=== PATIENT | female | born 1930 | race Two or more races ===

== ENCOUNTER 2016-09-23 03:09 | Observation (INO) | payer MEDICARE, OTHER ==
[~2016-09-23] VITALS: Ht 152.4 cm; Wt 99.1 kg
[2016-09-23] MEDS ORDERED: ONDANSETRON 4 MG INJ IV STA (03:27)
[2016-09-23] MEDS ORDERED: morphine 4 MG/ML VIAL IV STA (03:27)
--- NOTE | 2016-09-23 04:26 | RADRPT ---
PROCEDURE: XR Chest. CLINICAL INDICATION: Chest Pain. TECHNIQUE: Single frontal chest x-ray. COMPARISON: None. FINDINGS: Portable AP technique accentuates the size of the cardiomediastinal silhouette. There is the appeara nce of minimal enlargement of the cardiac silhouette. There is minimal prominence of the lung inters titium likely minimal chronic changes. There is mild patchy increased density in the left lower lung which could be secondary to atelectasis or infiltrate. Calcification in the aortic arch. Degenera tive changes in thoracic spine. ECG leads are projected over the chest. IMPRESSION: Patchy increased density in left lower lung could represent atelectasis or infiltrate. Minimal enla rgement of cardiac silhouette apparent. Please see above. RPTAT: HJES .David Carranza MD, Date Time Electronically viewed and signed by .David Carranza MD, on 09/23/2016 04:26 .S/
[2016-09-23 04:40] LABS: ADD SCAN DIFF NO
[2016-09-23 04:44] LABS: BASOPHIL # 0.1 10^3/ul (0.0-0.1); BASOPHILS % 0.6 % (0.0-2.0); EOSINOPHILS # 0.2 10^3/ul (0.0-0.5); EOSINOPHILS % 1.7 % (0.0-7.0); HEMATOCRIT 34.3 % (37.0-47.0); HEMOGLOBIN 11.5 g/dl (12.0-16.0); LYMPHOCYTES # 2.1 10^3/ul (0.8-2.9); MEAN CORPUSCULAR HEMOGLOBIN 29.7 pg (29.0-33.0); MEAN CORPUSCULAR HGB CONC 33.5 g/dl (32.0-37.0); MEAN CORPUSCULAR VOLUME 88.6 fl (82.0-101.0); MEAN PLATELET VOLUME 9.3 fl (7.4-10.4); MONOCYTE # 0.6 10^3/ul (0.3-0.9); MONOCYTES % 6.6 % (0.0-11.0); NEUTROPHIL # 6.3 10^3/ul (1.6-7.5); NEUTROPHILS % 67.7 % (39.0-77.0); PLATELET COUNT 273 10^3/UL (140-415); RED BLOOD COUNT 3.87 10^6/ul (4.20-5.40); RED CELL DISTRIBUTION WIDTH 13.4 % (11.5-14.5); WHITE BLOOD COUNT 9.3 10^3/ul (4.8-10.8)
[2016-09-23 04:57] LABS: CHLORIDE 98 mmol/L (97-110); POTASSIUM 4.3 mmol/L (3.5-5.1); SODIUM 132 mmol/L (135-144)
[2016-09-23 05:00] LABS: ANION GAP 15 (8-16); BLOOD UREA NITROGEN 21 mg/dl (7-20); CARBON DIOXIDE 23 mmol/L (21-31); CREATININE 1.06 mg/dl (0.44-1.00); GLUCOSE 107 mg/dl (70-220)
[2016-09-23 05:01] LABS: CALCIUM 8.9 mg/dl (8.4-10.2)
[2016-09-23 05:07] LABS: INR 0.88; PROTIME 11.9 Sec (12.2-14.2); PT RATIO 0.9
[2016-09-23 05:08] LABS: PARTIAL THROMBOPLASTIN TIME 25.8 Sec (25.0-35.0)
--- NOTE | 2016-09-23 05:12 | ERA ---
ER Documentation Chief Complaint Date/Time DATE: 09/23/16 TIME: 05:11 Chief Complaint left chest burning pain radiating to left shoulder,dizziness,SOB HPI This is a very pleasant 85-year-old gentleman complains of left-sided chest pain is radiating to his left shoulder with mild associated dizziness shortness breath. Symptomology is been going on for 1 hour. Pain is mild to moderate in intensity. Patient is a history of previous cardiac issues. No other current complaints. ROS All systems reviewed and are negative except as per history of present illness. Allergies Allergies: Coded Allergies: No Known Allergy (Unverified , 09/23/16) PMhx/Soc History of Surgery: Yes (knee replacement) Hx Neurological Disorder: No Hx Respiratory Disorders: No Hx Psychiatric Problems: No Hx Miscellaneous Medical Probl: Yes (hypertension, arthritis) Hx Alcohol Use: No Hx Substance Use: No Hx Tobacco Use: No Smoking Status: Never smoker Physical Exam Vitals Vital Signs Date Time Temp Pulse Resp B/P Pulse Ox O2 Delivery O2 Flow Rate FiO2 09/23/16 04:25 64 17 152/86 98 09/23/16 03:21 98.3 69 18 163/84 98 Physical Exam Const: [] Head: Atraumatic Eyes: Normal Conjunctiva ENT: Normal External Ears, Nose and Mouth. Neck: Full range of motion..~ No meningismus. Resp: Clear to auscultation bilaterally Cardio: Regular rate and rhythm, no murmurs Abd: Soft, non tender, non distended. Normal bowel sounds Skin: No petechiae or rashes Back: No midline or flank tenderness Ext: No cyanosis, or edema Neur: Awake and alert Psych: Normal Mood and Affect Result Diagram: 09/23/16 0415 09/23/16 0415 Results 24 hrs Laboratory Tests Test 09/23/16 04:15 Activated Partial Thromboplast Time 25.8Sec Anion Gap 15 Basophils # 0.110^3/ul Basophils % 0.6% Blood Urea Nitrogen 21mg/dl Calcium Level 8.9mg/dl Carbon Dioxide Level 23mmol/L Chloride Level 98mmol/L Creatinine 1.06mg/dl Eosinophils # 0.210^3/ul Eosinophils % 1.7% Glucose Level 107mg/dl Hematocrit 34.3% Hemoglobin 11.5g/dl INR International Normalized Ratio 0.88 Lymphocytes # 2.110^3/ul Lymphocytes % 23.0% Mean Corpuscular Hemoglobin 29.7pg Mean Corpuscular Hemoglobin Concent 33.5g/dl Mean Corpuscular Volume 88.6fl Mean Platelet Volume 9.3fl Monocytes # 0.610^3/ul Monocytes % 6.6% Neutrophils # 6.310^3/ul Neutrophils % 67.7% Nucleated Red Blood Cells # 0.010^3/ul Nucleated Red Blood Cells % 0.0/100WBC Platelet Count 34132^3/UL Potassium Level 4.3mmol/L Prothrombin Time 11.9Sec Prothrombin Time Ratio 0.9 Red Blood Count 3.8710^6/ul Red Cell Distribution Width 13.4% Sodium Level 132mmol/L Troponin I Pending White Blood Count 9.310^3/ul Current Medications Medications (Trade) Dose Ordered Sig/Rylee Route PRN Reason Start Time Stop Time Status Last Admin Dose Admin Morphine Sulfate (morphine) 4 mg ONCE STAT IV 09/23/16 03:27 09/23/16 03:30 DC 09/23/16 04:22 Ondansetron HCl (Zofran Inj) 4 mg ONCE STAT IV 09/23/16 03:27 09/23/16 03:30 DC 09/23/16 04:19 Procedures/MDM Chest X-ray 1V Interpreted by me: Soft Tissue: No acute abnormalities Bones: No acute abnormalities Mediastinum/Cardiac Silhouette/Lungs: No acute abnormalities EKG: Rate/Rhythm: Normal Sinus Rhythm QRS, ST, T-waves: No changes consistent w/ acute ischemia Impression: No evidence of ischemia or arrhythmia Patient's symptoms are concerning for cardiac cause will require inpatient workup and continuous monitoring. Further w/u for ischemia, arrhythmia, PE or dissection will be deferred to the inpatient team. Accepting Care Team: Current data and ongoing care discussed. Time: 5:15 AM Primary Provider: Hospitalist Consulting: [XOXOXO] Outstanding Data: none Departure Diagnosis: Primary Impression: Chest pain Qualified Code: I20.9 - Ischemic chest pain Condition: Serious VERONIKA PASCUALAlyssa Sep 23, 2016 05:12
[2016-09-23 05:24] LABS: TROPONIN-I < 0.012 ng/ml (0.00-0.12)
[2016-09-23] MEDS ORDERED: LIDOCAINE/MYLANTA 40 ML BTL PO ONE (06:00)
[2016-09-23] MEDS ORDERED: QUET50TA4 PO (07:28)
[2016-09-23] MEDS ORDERED: MEMA28CA PO (07:28)
[2016-09-23] MEDS ORDERED: ICOS1CAP PO (07:28)
[2016-09-23] MEDS ORDERED: ATOR20TA38 PO (07:29)
[2016-09-23] MEDS ORDERED: GABA300C16 PO (07:29)
[2016-09-23] MEDS ORDERED: NEBI5TAB9 PO (07:29)
[2016-09-23] MEDS ORDERED: ALLO100T PO (07:29)
--- NOTE | 2016-09-23 10:09 | QN ---
Documentation Comment Observation Note: Time: 4 hours Family Hx: Negative for diabetes Evaluation: Multiple exams showed improving symptoms and no evidence of clinical decompensation. APOLONIA BATES MD Sep 23, 2016 10:08
[2016-09-23] MEDS ORDERED: NACL 0.9% 3 ML SYG IV SCH (12:00)
[2016-09-23] MEDS ORDERED: morphine 2 MG INJ IV PRN (12:00)
[2016-09-23] MEDS ORDERED: ONDANSETRON 4 MG INJ IV PRN (12:00)
[2016-09-23] MEDS ORDERED: BISACODYL (EC) 5 MG TAB PO PRN (12:00)
[2016-09-23] MEDS ORDERED: ALBUTEROL/IPRATROPIUM (NEB) 3 ML AMP HHN PRN (12:00)
[2016-09-23] MEDS ORDERED: MAGNESIUM HYDROXIDE 30ML CUP PO PRN (12:00)
[2016-09-23] MEDS ORDERED: ZOLPIDEM 5 MG TAB PO PRN (12:00)
[2016-09-23] MEDS ORDERED: DOCUSATE SODIUM 100 MG CAP PO PRN (12:00)
[2016-09-23] MEDS ORDERED: BISACODYL 10 MG SUPP PR PRN (12:00)
[2016-09-23] MEDS ORDERED: HYDROCODONE/APAP (5/325) TAB PO PRN (12:00)
[2016-09-23] MEDS ORDERED: ACETAMINOPHEN 325 MG TAB PO PRN (12:00)
[2016-09-23] MEDS ORDERED: AMLODIPINE 5 MG TAB PO ONE (12:30)
--- NOTE | 2016-09-23 12:37 | HP ---
DATE OF ADMISSION: 09/23/2016 CHIEF COMPLAINT: Chest pain. REASON FOR ADMISSION: Atypical chest pain, acute coronary syndrome. HISTORY OF PRESENT ILLNESS: This is an 85-year-old female with a past medical history of hypertension, hyperlipidemia, history of arthritis status post knee replacement who presented with a complaint of chest pain. The patient initially had a workup done in the emergency room including left-sided chest pain which is radiating to her left shoulder, associated with some dizziness and shortness of breath. The patient started to have this chest pain approximately 1 hour prior to the presentation. It was mild to moderate in intensity. The patient is admitted for acute coronary syndrome and atypical chest pain. So far the full set of the troponins and EKG have been negative. EKG shows a normal sinus rhythm, no ST-T wave changes. The patient, at the time of my evaluation, denies any chest pain, palpitation, headache, dizziness, blurry vision, constipation, diarrhea, dysuria, increased urinary frequency. REVIEW OF SYSTEMS: Positive for chest pain. Other 12 point review of systems has been obtained and is negative except what is mentioned in the history of present illness. PAST MEDICAL HISTORY: Hypertension, hyperlipidemia, arthritis. PAST SURGICAL HISTORY: History of knee replacement. SOCIAL HISTORY: No smoking, alcohol or recreational drug use. FAMILY HISTORY: As per the patient, no family history of coronary artery disease or stroke in the family. PHYSICAL EXAMINATION: VITAL SIGNS: Temperature 98.3, heart rate 75, respiration 19, blood pressure 143/86, saturation 99 to 100% on 2 liters nasal cannula. GENERAL: Awake, alert, in no distress. HEENT: Normal. Oropharynx clear. NECK: Supple, no JVD, no lymphadenopathy. LUNGS: Clear to auscultation. No crackles, no wheezes. HEART: S1, S2, with regular rhythm, no murmur. ABDOMEN: Soft, nontender, nondistended. Bowel sounds are present. EXTREMITIES: No clubbing, cyanosis, or edema. NEUROLOGICAL: Nonfocal, intact. PSYCHIATRIC: Appropriate affect and mood. LABORATORY DATA/DIAGNOSTIC IMAGIN. WBC 9.3, hemoglobin 11.5, platelet count 273, Sodium 132, potassium 4.3, chloride 98, bicarbonate 23, BUN 21, creatinine .06, glucose 107, calcium 8.9. Troponin x1 negative. PT 11.9, PTT 25.8, INR 0.88. 2. A 12-lead EKG a normal sinus rhythm, 73, no ST-T wave changes. 3. Chest x-ray 1 view portable, done in the emergency room, no acute findings. IMPRESSION: This is an 85-year-old female with: 1. Acute coronary syndrome, atypical chest pain. 2. Accelerated hypertension. 3. History of hypertension. 4. History of hyperlipidemia. 5. History of arthritis, status post knee replacement. PLAN: 1. Patient is currently seen in the emergency room and she will be admitted to the telemetry floor for serial troponins and EKG to rule out acute coronary syndrome. 2. Cardiology consult, Dr. Abarca, to see patient. 3. Echocardiogram has been ordered for workup of chest pain. We will continue her home medications. I will add amlodipine for better blood pressure control. The patient will be followed up along with her course in the hospital. 4. Pepcid for GI prophylaxis and SCDs for DVT prophylaxis. Patient is currently seen in the emergency room and she will be admitted to the telemetry floor. She is still waiting for a bed in the emergency room. Total time spent this patient evaluation, H &P,making assessment and plan, updating patient/Family at bedside, and communicating with Nursing staff took more than 90 minutes Dictated By: ELMO LOPEZ MD, KP/NINI Conf#: [id number] DID#: [id number] MTDD
[2016-09-23 13:52] LABS: CREATINE KINASE 131 IU/L (23-200)
[2016-09-23 14:02] LABS: CK-MB 2.42 ng/ml (0.0-2.4)
[2016-09-23 14:05] LABS: TROPONIN-I < 0.012 ng/ml (0.00-0.12)
[2016-09-23 14:26] VITALS: BP 157/79
[2016-09-23 14:36] VITALS: PULSE 62
[2016-09-23] MEDS: DEXTROSE 5%-0.45% NACL 1,000 ML IV SCH (14:49)
[2016-09-23 14:58] VITALS: Ht 152.4 cm; Wt 99.1 kg
[2016-09-23 15:30] VITALS: BP 147/68; RESP 16
[2016-09-23 16:18] VITALS: PULSE 68
--- NOTE | 2016-09-23 17:11 | RADRPT ---
Echocardiogram Report Patient Name: MARYSOL MCCOLLUM Gender: Female Date: 1930 Study Date: 23-Sep-2016 [employer] Operator: [facility] Location: [facility] Ref. Physician: ELMO LOPEZ Quality: Technically Difficult Study Procedures: Transthoracic echocardiogram with complete 2D, M-Mode, and doppler examination. Indications: Chest Pain. 2D/M Mode Doppler Measurement Value Normal Ranges Measurement Value Normal Ranges LVIDd 2D 4.9 3.5 - 5.6 cm AV Peak Best 1.2 m/sec LVIDs 2D 3.1 2.1 - 4.1 cm AV Peak PG 6.0 mmHg FS 2D 36.7 % LVOT Peak Best 1.0 m/sec LVPWd 2D 1.1 0.6 - 1.1 cm LVOT Peak PG 4.0 mmHg IVSd 2D 1.1 0.6 - 1.1 cm MV E Peak Best 0.8 m/sec IVS/LVPW 2D 1.0 MV A Peak Best 1.1 m/sec AoR Diam 2D 2.8 2.0 - 3.7 cm MV E/A 0.7 LA/Ao 2D 2 0 - 1 MV Decel Time 246 msec EDV 2D 120.0 cm3 MV E/A 0.7 ESV 2D 30.4 cm3 LA Dimen 2D 5.1 2.3 - 4.0 cm Findings Left Ventricle: Normal left ventricular systolic function. Normal left ventricular cavity size. Left ventricular wall thickness upper limits of normal. Ejection fraction is visually estimated at 60 %. Tissue Doppler/Mitral Doppler indices are consistent with impaired relaxation (Stage I diastolic dysfunction). Right Ventricle: Normal right ventricular size. Normal right ventricular systolic function. Left Atrium: There is moderate enlargement of left atrium. Right Atrium: Right atrium at upper limits of normal. Mitral Valve: Mild mitral annular calcification. Trace mitral regurgitation. Aortic Valve: Trileaflet aortic valve. Tricuspid Valve: Tricuspid valve not well visualized. There is trace tricuspid regurgitation. Pulmonic Valve: Pulmonic valve not well visualized. There is trace pulmonic regurgitation. Pericardium: Normal pericardium with no significant pericardial effusion. Aorta: Normal aortic root. IVC: Normal size and normal respiratory collapse consistent with normal right atrial pressure. Conclusions Normal left ventricular systolic function. Normal left ventricular cavity size. Left ventricular wall thickness upper limits of normal. Ejection fraction is visually estimated at 60 %. Tissue Doppler/Mitral Doppler indices are consistent with impaired relaxation (Stage I diastolic dysfunction). There is moderate enlargement of left atrium. Mild mitral annular calcification. Trace mitral regurgitation. Trileaflet aortic valve. Tricuspid valve not well visualized. There is trace tricuspid regurgitation. Pulmonic valve not well visualized. There is trace pulmonic regurgitation. Electronically Signed By: Leodan Abarca 23-Sep-2016 17:10:44 -0800 Patient Name: MARYSOL MCCOLLUM Study Date: 23-Sep-2016 [id number]
[2016-09-23 18:21] LABS: CREATINE KINASE 169 IU/L (23-200)
[2016-09-23 18:37] LABS: TROPONIN-I < 0.012 ng/ml (0.00-0.12)
--- NOTE | 2016-09-23 18:46 | CONS ---
DATE OF ADMISSION: 09/23/2016 DATE OF CONSULTATION: 09/23/2016 REASON FOR CONSULTATION: Shortness of breath, associated chest pain. REQUESTING PHYSICIAN: Elmo Bahena MD. HISTORY OF PRESENT ILLNESS: Ms. Umana is an 85-year-old female with a history of hypertension, dyslipidemia, and degenerative joint disease, prior knee replacement, who initially presented with complaints of shortness of breath at rest with associated chest pain radiating to her left shoulder, and associated dizziness. Upon arrival in the emergency department, temperature of 98.3, blood pre ssure 163/84, pulse 69, respiratory rate 18, saturating 98%. The patient's labs, white cell count 9 .3, hemoglobin 11.5, platelet count of 273. Sodium 132, potassium 4.3, creatinine 1.0, BUN 21. Tro ponin negative. INR 0.88. The patient underwent a chest x-ray revealing patchy increased density i n the left lower lung. The patient's electrocardiogram revealed sinus rhythm at a rate of 67, rafiq l axis, normal intervals with nonspecific ST-T abnormalities and low voltage. Patient subsequently admitted to the floor and since admit to floor, complains of shortness of breath. PAST MEDICAL HISTORY: As above in HPI. MEDICATIONS CURRENTLY IN HOSPITAL: 1. Zoloft 5 mg daily. 2. Norvasc 5 mg daily. 3. Lipitor 20 mg at bedtime. 4. Neurontin 20 mg daily. 5. Pepcid 20 mg IV nightly. 6. Zofran p.r.n. 7. Tylenol p.r.n. 8. [place] p.r.n. 9. Morphine p.r.n. 10. Milk of Magnesia. 11. DuoNeb. 12. 75 mL an hour. ALLERGIES: NO KNOWN DRUG ALLERGIES. SOCIAL HISTORY: No tobacco, ETOH, or illicit drug use. FAMILY HISTORY: No history of sudden cardiac or early CAD. REVIEW OF SYSTEMS: As above. CONSTITUTIONAL: No fevers, chills. PULMONARY: Positive for shortness of breath. CARDIOVASCULAR: Intermittent chest pain. GASTROINTESTINAL: No vomiting. GENITOURINARY: No hematuria. MUSCULOSKELETAL: Degenerative joint disease. PSYCHIATRIC: Patient denies depression. NEUROLOGIC: No documented history of CVA. ENDOCRINE: No documented history of diabetes mellitus. PHYSICAL EXAMINATION: VITAL SIGNS: Temperature 98.3, blood pressure most recently 147/68, pulse 68, respirations 16, satu rating 98%. GENERAL: The patient is alert, awake, in no acute distress. Complaining of shortness of breath, ch est pain. NECK: JVP difficult to assess secondary to body habitus. HEART: Regular rate and rhythm. Normal S1, S2. I/ systolic murmur, nondisplaced PMI. ABDOMEN: Positive bowel sounds, soft. EXTREMITIES: No pitting edema, 1+ pulses bilaterally, posterior tibial. LABORATORY DATA: As above in HPI. No further labs for my review at this time. IMAGING STUDIES: As above in HPI. No further imaging studies for my review at this time. ECG: As above in HPI. No further electrocardiograms for my review at this time. IMPRESSION: 1. Chest pain, assess for acute coronary syndrome. 2. Shortness of breath, assess for congestive heart failure. 3. Abnormal electrocardiogram. Assess for acute coronary syndrome. 4. Hypertension. 5. Renal insufficiency. 6. Hyponatremia. 7. Anemia. 8. Dyslipidemia. RECOMMENDATIONS: 1. At this time, would maintain the patient on telemetry monitoring to follow rhythm and rate contr ol closely. 2. Would continue the patient's current Norvasc and Bystolic for control of blood pressure and hear t rate, and will add oral nitrates, and follow the patient's symptomatology. 3. Continue the patient's statin therapy and adjust it according to a fasting lipid panel to be naila cked. 4. Check a BMP to further assess the patient's current volume status. 5. Check a 2D echocardiogram to further assess patient's ejection fraction, wall motion, or any yovany or abnormalities. 6. Will consider stress testing the patient to further evaluate for the possibility of ischemia rel ating to the patient's chest pain and subsequent admit to the hospital. 7. Give patient additional sublingual nitroglycerin for recurrent episodes of chest pain. Thank you for allowing me to take part in the care of this patient. I will continue to follow him janusz pal closely with you with further recommendations to be made as patient progresses through inpatient hospital clinical course. Dictated By: MEL CANTRELL/NINI Conf#: [id number] DID#: [id number] CC: ELMO BAHENA MD;*EndCC*
[2016-09-23 20:30] VITALS: BP 163/78; RESP 20
[2016-09-23] MEDS: ISOSORBIDE DINITRATE 20 MG TAB PO SCH (20:32)
[2016-09-23 20:37] VITALS: PULSE 78
[2016-09-23] MEDS ORDERED: FAMOTIDINE 20 MG INJ IV SCH (21:00)
[2016-09-23] MEDS ORDERED: ATORVASTATIN 20 MG TAB PO SCH (21:00)
[2016-09-23] MEDS ORDERED: GABAPENTIN 300 MG CAP PO SCH (21:00)
[2016-09-23] MEDS ORDERED: LORAZEPAM 2 MG INJ IV ONE (21:00)
[2016-09-23] MEDS ORDERED: CEPASTAT LOZENGE MT PRN (21:00)
[2016-09-24] VITALS (8 sets, daily range): BP systolic 113–124; BP diastolic 60–65; PULSE 61–70; RESP 18–20
[2016-09-24] MEDS: DEXTROSE 5%-0.45% NACL 1,000 ML IV SCH (01:19)
[2016-09-24 08:05] LABS: ADD SCAN DIFF NO
[2016-09-24 08:27] LABS: ALBUMIN 3.5 g/dl (3.3-4.9)
[2016-09-24 08:28] LABS: POTASSIUM 4.2 mmol/L (3.5-5.1)
[2016-09-24 08:29] LABS: CREATININE 1.15 mg/dl (0.44-1.00)
[2016-09-24 08:30] LABS: ALBUMIN/GLOBULIN RATIO 1.4; BILIRUBIN,INDIRECT 0.2 mg/dl (0-1.1); BILIRUBIN,TOTAL 0.2 mg/dl (0.2-1.3); CALCIUM 9.1 mg/dl (8.4-10.2)
[2016-09-24 08:31] LABS: CHOL/HDL RATIO 2.2 RATIO
[2016-09-24 08:42] LABS: BASOPHIL # 0.1 10^3/ul (0.0-0.1); BASOPHILS % 0.8 % (0.0-2.0); EOSINOPHILS # 0.1 10^3/ul (0.0-0.5); EOSINOPHILS % 1.5 % (0.0-7.0); HEMATOCRIT 32.2 % (37.0-47.0); HEMOGLOBIN 10.9 g/dl (12.0-16.0); LYMPHOCYTES # 1.9 10^3/ul (0.8-2.9); LYMPHOCYTES % 22.7 % (15.0-51.0); MEAN CORPUSCULAR HEMOGLOBIN 30.4 pg (29.0-33.0); MEAN CORPUSCULAR HGB CONC 33.9 g/dl (32.0-37.0); MEAN CORPUSCULAR VOLUME 89.9 fl (82.0-101.0); MEAN PLATELET VOLUME 9.6 fl (7.4-10.4); MONOCYTE # 0.6 10^3/ul (0.3-0.9); MONOCYTES % 7.4 % (0.0-11.0); NEUTROPHIL # 5.6 10^3/ul (1.6-7.5); NEUTROPHILS % 67.1 % (39.0-77.0); PLATELET COUNT 264 10^3/UL (140-415); RED BLOOD COUNT 3.58 10^6/ul (4.20-5.40); RED CELL DISTRIBUTION WIDTH 13.5 % (11.5-14.5); WHITE BLOOD COUNT 8.4 10^3/ul (4.8-10.8)
[2016-09-24 08:47] LABS: T3 UPTAKE 35.8 % (23.5-40.5)
[2016-09-24] MEDS ORDERED: AMLODIPINE 5 MG TAB PO SCH (09:00)
[2016-09-24] MEDS ORDERED: ALLOPURINOL 100 MG TAB PO SCH (09:00)
[2016-09-24] MEDS ORDERED: NEBIVOLOL 5 MG TAB PO SCH (09:00)
[2016-09-24 09:03] LABS: THYROID STIMULATING HORMONE 3.64 MIU/L (0.465-4.680)
--- NOTE | 2016-09-24 09:09 | PN ---
Date/Time of Note Date/Time of Note DATE: 09/24/16 TIME: 09:06 Assessment/Plan VTE Prophylaxis VTE Prophylaxis Intervention: SCD's Lines/Catheters IV [facility] Urinary Cath still in place: No Assessment/Plan Assessment/Plan 1. Acute coronary syndrome, atypical chest pain. 2. Accelerated hypertension. 3. History of hypertension. 4. History of hyperlipidemia. 5. History of arthritis, status post knee replacement. PLAN: plan for lexiscan today [employer] Director following if lexiscan negative then possible d/c Subjective 24 Hr Interval Summary Free Text/Dictation doing ok, no chest pain but pt c/o chest discomfort Exam/Review of Systems Vital Signs Vitals Vital Signs Date Time Temp Pulse Resp B/P Pulse Ox O2 Delivery O2 Flow Rate FiO2 09/24/16 08:42 61 09/24/16 07:44 97.5 18 124/60 98 09/23/16 13:30 Room Air 09/23/16 11:06 3.0 Intake and Output 09/23/16 09/23/16 09/24/16 15:00 23:00 07:00 Intake Total 525 ml 1000 ml Balance 525 ml 1000 ml Exam GENERAL: Awake, alert, in no distress. HEENT: Normal. Oropharynx clear. NECK: Supple, no JVD, no lymphadenopathy. LUNGS: Clear to auscultation. No crackles, no wheezes. HEART: S1, S2, with regular rhythm, no murmur. ABDOMEN: Soft, nontender, nondistended. Bowel sounds are present. EXTREMITIES: No clubbing, cyanosis, or edema. NEUROLOGICAL: Nonfocal, intact. PSYCHIATRIC: Appropriate affect and mood. Results Result Diagram: 09/24/1671609/24/1617 Results 24 hrs Laboratory Tests Test 09/23/16 13:25 09/23/16 17:45 09/24/16 07:17 Creatine Kinase 131 169 Creatine Kinase Index 1.8 2.1 Creatinine Kinase MB (Mass) 2.42 H 3.50 H Troponin I < 0.012 < 0.012 Alanine Aminotransferase (ALT/SGPT) 43 Albumin 3.5 Albumin/Globulin Ratio 1.40 Alkaline Phosphatase 74 Anion Gap 14 Aspartate Amino Transf (AST/SGOT) 26 Basophils # 0.1 Basophils % 0.8 Blood Urea Nitrogen 21 H Calcium Level 9.1 Carbon Dioxide Level 25 Chloride Level 98 Cholesterol Level 178 Cholesterol/HDL Ratio 2.2 Creatinine 1.15 H Direct Bilirubin 0.00 Eosinophils # 0.1 Eosinophils % 1.5 Free Thyroxine Index 3.04 Globulin 2.50 Glucose Level 116 HDL Cholesterol 79 Hematocrit 32.2 L Hemoglobin 10.9 L Hemoglobin A1c 6.1 H Indirect Bilirubin 0.2 LDL Cholesterol, Calculated 81 Lymphocytes # 1.9 Lymphocytes % 22.7 Mean Corpuscular Hemoglobin 30.4 Mean Corpuscular Hemoglobin Concent 33.9 Mean Corpuscular Volume 89.9 Mean Platelet Volume 9.6 Monocytes # 0.6 Monocytes % 7.4 Neutrophils # 5.6 Neutrophils % 67.1 Nucleated Red Blood Cells # 0.0 Nucleated Red Blood Cells % 0.0 Platelet Count 264 Potassium Level 4.2 Red Blood Count 3.58 L Red Cell Distribution Width 13.5 Sodium Level 133 L Thyroid Stimulating Hormone (TSH) 3.640 Thyroxine (T4) 8.5 Total Bilirubin 0.2 Total Protein 6.0 L Triglycerides Level 88 Triiodothyronine (T3) Uptake 35.8 White Blood Count 8.4 Medications Medications Current Medications Allopurinol (Zyloprim) 100 mg DAILY PO ; Start 09/24/16 at 09:00 Atorvastatin Calcium (Lipitor) 20 mg QHS PO Last administered on 09/23/16 20:32 ; Admin Dose 20 MG; Start 09/23/16 at 21:00 Gabapentin (Neurontin) 300 mg QHS PO Last administered on 09/23/16 20:32; Admin Dose 300 MG; Start 09/23/16 at 21:00 Miscellaneous Medication 5 mg 5 mg DAILY PO ; Start 09/24/16 at 09:00 Dextrose/Sodium Chloride (D5-1/2ns) 1,000 ml @ 75 mls/hr [id number] IV Last administered on 09/23/16 14:49; Admin Dose 75 MLS/HR; Start 09/23/16 at 11:59 Ondansetron HCl (Zofran Inj) 4 mg Q4H PRN IV NAUSEA AND/OR VOMITING; Start 09/23 at 12:00 Acetaminophen (Tylenol Tab) 650 mg Q6H PRN PO PAIN LEVEL 1-3 OR FEVER; Start at 12:00 Acetaminophen/ Hydrocodone Bitart ([place] (5/325)) 1 tab Q6H PRN PO MODERATE PAIN LEVEL 4-6 Last administered on 09/24/16 00:15; Admin Dose 1 TAB; Start 09/23 at 12:00 Morphine Sulfate (morphine) 2 mg Q4H PRN IV SEVERE PAIN LEVEL 7-10; Start at 12:00 Docusate Sodium (Colace) 100 mg Q12H PRN PO CONSTIPATION; Start 09/23/16 at 12: 00 Magnesium Hydroxide (Milk Of Mag) 30 ml DAILY PRN PO CONSTIPATION; Start at 12:00 Bisacodyl (Dulcolax) 5 mg DAILY PRN PO CONSTIPATION; Start 09/23/16 at 12:00 Bisacodyl (Dulcolax Supp) 10 mg DAILY PRN MD CONSTIPATION; Start 09/23/16 at 12: 00 Zolpidem Tartrate (Ambien) 5 mg QHS PRN PO SLEEP Last administered on 09/23/16 20:32; Admin Dose 5 MG; Start 09/23/16 at 12:00 Famotidine (Pepcid Iv) 20 mg HS IV Last administered on 09/23/16 20:32; Admin Dose 20 MG; Start 09/23/16 at 21:00 Amlodipine Besylate (Norvasc) 5 mg DAILY PO ; Start 09/24/16 at 09:00 Isosorbide Dinitrate (Isordil) 20 mg TID PO Last administered on 09/23/16 20:32 ; Admin Dose 20 MG; Start 09/23/16 at 21:00 Phenol (Cepastat Lozenge) 1 lozenge Q1H PRN MT SORE THROAT Last administered on 09/23/16 22:49; Admin Dose 1 LOZENGE; Start 09/23/16 at 21:00 ELMO LOPEZ MD Sep 24, 2016 09:08
[2016-09-24] MEDS ORDERED: ISOS20TA19 PO (09:10)
--- NOTE | 2016-09-24 09:10 | PDOCDIS ---
Discharge Instructions CONDITION Patient Condition: Good HOME CARE INSTRUCTIONS: Special Diet: low chol ACTIVITY: Activity Restrictions: Slowly Increase Activity Rest between Activity Avoid heavy lifting Avoid Heavy Housework FOLLOW UP/APPOINTMENTS Appointments follow up with Dr.Kalpesh wong [phone] in 1-2 week after discahrge, Follow up with [facility] in 1-2 weeks after discharge . follow up with her own PMD as scheduled with PMD ELMO WONG MD Sep 24, 2016 09:09
[2016-09-24] MEDS: ISOSORBIDE DINITRATE 20 MG TAB PO SCH ×2 (10:03→13:00)
[2016-09-24] MEDS ORDERED: REGADENOSON 0.4 MG/5 ML SYG ONE (12:50)
--- NOTE | 2016-09-24 13:13 | CONS ---
Date/Time of Note Date/Time of Note DATE: 09/24/16 TIME: 13:10 Assessment/Plan Assessment/Plan Chief Complaint/Hosp Course IMPRESSION: 1. Chest pain, assess for acute coronary syndrome.-negative troponin x 3/NL EF by echo 2. Shortness of breath, assess for congestive heart failure. 3. Abnormal electrocardiogram. Assess for acute coronary syndrome. 4. Hypertension. 5. Renal insufficiency. 6. Hyponatremia. 7. Anemia. 8. Dyslipidemia-LDL 81 HDL 79. Recc: -Tele -Continue norvasc/isordil -Lexiscan stress test today and if negative for ischemia then patient is ok for d/c from cardiac standpoint Problems: Consultation Date/Type/Reason Admit Date/Time Sep 23, 2016 at 14:19 Initial Consult Date 09/24/2015 Type of Consultation: Cardiology Reason for Consultation Chest pain Referring Provider: ELMO LOPEZ MD Exam/Review of Systems Vital Signs Vitals Vital Signs Date Time Temp Pulse Resp B/P Pulse Ox O2 Delivery O2 Flow Rate FiO2 09/24/16 08:42 61 09/24/16 07:44 97.5 18 124/60 98 09/23/16 13:30 Room Air 09/23/16 11:06 3.0 Intake and Output 09/23/16 09/23/16 09/24/16 15:00 23:00 07:00 Intake Total 525 ml 1000 ml Balance 525 ml 1000 ml Exam Review of Systems: CONSTITUTIONAL: No fevers, chills. PULMONARY: No sob CARDIOVASCULAR: Intermittent chest pain GASTROINTESTINAL: No nausea/vomiting. GENITOURINARY: No hematuria/dysuria. MUSCULOSKELETAL: No myagias/arthalgias. PSYCHIATRIC: The patient denies depression. NEUROLOGIC: No weakness Constitutional: alert, oriented Psych: no complaints Head: normocephalic ENMT: mucosa pink and moist Neck: jvd (8 cm water), supple Respiratory: clear to auscultation Cardiovascular: regular rate and rhythm Gastrointestinal: non-tender, soft Musculoskeletal: muscle tone (normal) Extremities: edema (none) Neurological: other (No focal deficits) Results Result Diagram: 09/24/1617 09/24/16 0717 Results 24 hrs Laboratory Tests Test 09/23/16 13:25 09/23/16 17:45 09/24/16 07:17 Creatine Kinase 131 169 Creatine Kinase Index 1.8 2.1 Creatinine Kinase MB (Mass) 2.42 H 3.50 H Troponin I < 0.012 < 0.012 Alanine Aminotransferase (ALT/SGPT) 43 Albumin 3.5 Albumin/Globulin Ratio 1.40 Alkaline Phosphatase 74 Anion Gap 14 Aspartate Amino Transf (AST/SGOT) 26 Basophils # 0.1 Basophils % 0.8 Blood Urea Nitrogen 21 H Calcium Level 9.1 Carbon Dioxide Level 25 Chloride Level 98 Cholesterol Level 178 Cholesterol/HDL Ratio 2.2 Creatinine 1.15 H Direct Bilirubin 0.00 Eosinophils # 0.1 Eosinophils % 1.5 Free Thyroxine Index 3.04 Globulin 2.50 Glucose Level 116 HDL Cholesterol 79 Hematocrit 32.2 L Hemoglobin 10.9 L Hemoglobin A1c 6.1 H Indirect Bilirubin 0.2 LDL Cholesterol, Calculated 81 Lymphocytes # 1.9 Lymphocytes % 22.7 Mean Corpuscular Hemoglobin 30.4 Mean Corpuscular Hemoglobin Concent 33.9 Mean Corpuscular Volume 89.9 Mean Platelet Volume 9.6 Monocytes # 0.6 Monocytes % 7.4 Neutrophils # 5.6 Neutrophils % 67.1 Nucleated Red Blood Cells # 0.0 Nucleated Red Blood Cells % 0.0 Platelet Count 264 Potassium Level 4.2 Red Blood Count 3.58 L Red Cell Distribution Width 13.5 Sodium Level 133 L Thyroid Stimulating Hormone (TSH) 3.640 Thyroxine (T4) 8.5 Total Bilirubin 0.2 Total Protein 6.0 L Triglycerides Level 88 Triiodothyronine (T3) Uptake 35.8 White Blood Count 8.4 Medications Medications Current Medications Allopurinol (Zyloprim) 100 mg DAILY PO Last administered on 09/24/16 10:02; Admin Dose 100 MG; Start 09/24/16 at 09:00 Atorvastatin Calcium (Lipitor) 20 mg QHS PO Last administered on 09/23/16 20:32 ; Admin Dose 20 MG; Start 09/23/16 at 21:00 Gabapentin (Neurontin) 300 mg QHS PO Last administered on 09/23/16 20:32; Admin Dose 300 MG; Start 09/23/16 at 21:00 Miscellaneous Medication 5 mg 5 mg DAILY PO Last administered on 09/24/16 10:03 ; Admin Dose 5 MG; Start 09/24/16 at 09:00 Dextrose/Sodium Chloride (D5-1/2ns) 1,000 ml @ 75 mls/hr [id number] IV Last administered on 09/23/16 14:49; Admin Dose 75 MLS/HR; Start 09/23/16 at 11:59 Ondansetron HCl (Zofran Inj) 4 mg Q4H PRN IV NAUSEA AND/OR VOMITING; Start 09/23 at 12:00 Acetaminophen (Tylenol Tab) 650 mg Q6H PRN PO PAIN LEVEL 1-3 OR FEVER; Start at 12:00 Acetaminophen/ Hydrocodone Bitart (Transfer (5/325)) 1 tab Q6H PRN PO MODERATE PAIN LEVEL 4-6 Last administered on 09/24/16 00:15; Admin Dose 1 TAB; Start 09/23 at 12:00 Morphine Sulfate (morphine) 2 mg Q4H PRN IV SEVERE PAIN LEVEL 7-10; Start at 12:00 Docusate Sodium (Colace) 100 mg Q12H PRN PO CONSTIPATION; Start 09/23/16 at 12: 00 Magnesium Hydroxide (Milk Of Mag) 30 ml DAILY PRN PO CONSTIPATION; Start at 12:00 Bisacodyl (Dulcolax) 5 mg DAILY PRN PO CONSTIPATION; Start 09/23/16 at 12:00 Bisacodyl (Dulcolax Supp) 10 mg DAILY PRN MT CONSTIPATION; Start 09/23/16 at 12: 00 Zolpidem Tartrate (Ambien) 5 mg QHS PRN PO SLEEP Last administered on 09/23/16 20:32; Admin Dose 5 MG; Start 09/23/16 at 12:00 Famotidine (Pepcid Iv) 20 mg HS IV Last administered on 09/23/16 20:32; Admin Dose 20 MG; Start 09/23/16 at 21:00 Amlodipine Besylate (Norvasc) 5 mg DAILY PO Last administered on 09/24/16 10:02 ; Admin Dose 5 MG; Start 09/24/16 at 09:00 Isosorbide Dinitrate (Isordil) 20 mg TID PO Last administered on 09/24/16 10:03 ; Admin Dose 20 MG; Start 09/23/16 at 21:00 Phenol (Cepastat Lozenge) 1 lozenge Q1H PRN MT SORE THROAT Last administered on 3/7/17at 22:49; Admin Dose 1 LOZENGE; Start 09/23/16 at 21:00 MEL MODI Sep 24, 2016 13:13
--- NOTE | 2016-09-24 14:11 | CARRPT ---
DATE OF PROCEDURE: 09/24/2016 TYPE OF PROCEDURE: Lexiscan Cardiolite stress test, electrocardiogram portion. REASON FOR STRESS TESTING: Chest pain, assess for ischemia. BASELINE VITAL SIGNS AND ELECTROCARDIOGRAM: Pulse 62, blood pressure 140/78. Electrocardiogram rev eals normal sinus rhythm, rate of 62, normal axis, normal intervals with lateral T-wave inversion. PROCEDURE: The patient underwent standard Lexiscan infusion protocol over 10 seconds followed by ra diolabeled tracer. The patient's test was stopped due to completion of protocol. Maximal achieved blood pressure during the test 133/60. Maximal heart rate during the test 85. ELECTROCARDIOGRAM FINDINGS: The patient did not develop any new Lexiscan-induced ST or T-wave hays es from baseline abnormalities. No documented PVCs. SYMPTOMS: The patient had no complaints of chest pain or shortness of breath during stress testing. IMPRESSION: 1. No Lexiscan-induced ST or T changes from baseline abnormalities diagnostic for cardiac ischemia. 2. No complaints of chest pain or shortness of breath during stress test. 3. No documented premature ventricular contractions during stress testing. 4. Report of nuclear images to follow in separate dictation. Dictated By: MEL CANTRELL/NINI Conf#: [id number] DID#: [id number] CC: ELMO LOPEZ MD;*End*
--- NOTE | 2016-09-24 15:59 | RADRPT ---
Vent Rate: 70 bpm RR Interval: 0 msec WI Interval: 190 msec QRS Duration: 90 msec QT Interval: 430 msec QTC Interval: 464 msec P-R-T Coffey: 50 - 30 - 45 degrees Normal sinus rhythm Normal ECG Electronically Signed By: Leodan Abarca [id number]
--- NOTE | 2016-09-24 17:28 | RADRPT ---
PROCEDURE: Nuclear medicine myocardial perfusion scan CLINICAL INDICATION: Chest pain TECHNIQUE: 31.7 mCi of technetium 99m Cardiolite was administered for the stress study. 11.2 mCi of technetium 99m Cardiolite was administered for the resting study. The patient was stressed with 0 .4 mg of Lexiscan. Images were reviewed in the short axis, vertical long axis, and horizontal long axis views. Wall motion was assessed and ejection fraction was calculated as well. Images were revi ewed on a high-resolution PACS workstation. COMPARISON: None available FINDINGS: Left ventricular size is within normal limits. There is moderate soft tissue and bowel attenuation artifact. The stress tomographic images demonstrate diminished perfusion along the inferior wall. The resting tomographic images demonstrate improved perfusion along the inferior wall. There is cheikh dence for reversible ischemia. Wall motion is normal. The ejection fraction is calculated at 86%. IMPRESSION: 1. Positive myocardial perfusion scan. 2. Reversible ischemia along the inferior wall. 3. Normal wall motion with normal ejection fraction of 86%. RPTAT: HMJB .Darwin Hart MD, MD Date Time Electronically viewed and signed by .Darwin Hart MD, MD on 09/24/2016 17:28 .B/
--- NOTE | 2016-09-25 00:22 | DS ---
DATE OF ADMISSION: 09/23/2016 DATE OF DISCHARGE: 09/24/2016 FINAL DISCHARGE DIAGNOSES: This is an 85-year-old female who has a past medical history of hyperten delroy, hyperlipidemia, history of arthritis, status post knee replacement, presented with a complaint of chest pain. HOSPITAL COURSE: The patient was admitted to the telemetry floor for left-sided chest pain where sh gareth had serial troponins and EKG negative for any acute coronary syndrome. The patient subsequently h ad a cardiology evaluation and had a Lexiscan myocardial perfusion stress test. The initial report of the perfusion stress test was negative, but after reviewing with radiology, the Lexiscan came evelyn k positive for inferior baseline perfusion defects. Her ejection fraction was normal. She was ches t pain free. As per Dr. Abarca, he recommended the patient to have a cardiac catheterization, but the patient got discharged prior to reviewing the report from radiology, so the patient will be foll owed up in the cardiology clinic and with my clinic for further subsequent care. She is currently d ecided for medical management and further plan is to do a cardiac catheterization as outpatient upon discharge. DISPOSITION: To home. DISCHARGE CONDITION: Stable and improved compared to admission. DISCHARGE ACTIVITIES: As tolerated, slowly resume to the normal baseline activity. DISCHARGE DIET: Cardiac diet. DISCHARGE MEDICATIONS: She is given a new prescription of isosorbide dinitrate 10 mg p.o. t.i.d. up on discharge. DISCHARGE FOLLOWUP AND INSTRUCTIONS: 1. The patient is to follow up with Dr. Elmo Lopez in outpatient clinic 1 to 2 weeks after disch arge. 2. The patient is to follow up with Dr. Leodan Abarca, cardiology, as outpatient in [address] discharge. She has been explained about the discharge plan and followup instructions. She unde rstood and verbalized understanding. Dictated By: ELMO LOPEZ MD, KP/NINI Conf#: [id number] DID#: [id number]
== END 2016-09-24 15:07 | disposition home or self-care (01) ==
LOC: E/R 03:09 → TEL 14:19
PROVIDERS: ADMIT Family Medicine; ATTEND Family Medicine
DX: R07.89 Other chest pain (principal); R06.02 Shortness of breath; R94.31 Abnormal electrocardiogram [ECG] [EKG]; I10 Essential (primary) hypertension; E87.1 Hypo-osmolality and hyponatremia; D64.9 Anemia, unspecified
CPT/HCPCS: 36415; 71010; 78452; 80048; 80053; 80061; 82550; 82553; 83036; 84436; 84443; 84479; 84484; 85025; 85610; 85730; 93005; 93017; 93306; 96374; 96375; 99285; A9500; A9505; G0378; J2060; J2270; J2405; J2785; J7042

== ENCOUNTER 2016-09-28 05:50 | Emergency (ER) | payer MEDICARE, OTHER ==
[~2016-09-28] VITALS: Ht 157.5 cm; Wt 95.0 kg
[~2016-09-28 05:50] MED LIST: ALLO100T PO; ATOR20TA38 PO; GABA300C16 PO; ICOS1CAP PO; ISOS20TA19 PO; MEMA28CA PO; NEBI5TAB9 PO; QUET50TA4 PO
[2016-09-28 06:03] VITALS: Ht 157.5 cm; Wt 95.0 kg
[2016-09-28] MEDS ORDERED: FAMOTIDINE 20 MG TAB PO STA (06:44)
[2016-09-28] MEDS ORDERED: SOD CHLORIDE 0.9% 500 ML IV STA (06:44)
[2016-09-28] MEDS ORDERED: BELLADONNA/PHENOBARBITAL TAB PO STA (06:44)
[2016-09-28] MEDS ORDERED: LIDOCAINE/MYLANTA 40 ML BTL PO STA (06:44)
[2016-09-28] MEDS ORDERED: ONDANSETRON 4 MG INJ IV STA (06:44)
[2016-09-28] MEDS ORDERED: LORAZEPAM 2 MG INJ IV ONE (07:00)
[2016-09-28 07:36] LABS: ADD SCAN DIFF NO
[2016-09-28 07:38] LABS: ADD UMIC YES; URINE BILIRUBIN (Dip) NEGATIVE (NEGATIVE); URINE BLOOD (Dip) TRACE (NEGATIVE); URINE COLOR LT. YELLOW (YELLOW); URINE GLUCOSE (Dip) NEGATIVE (NEGATIVE); URINE KETONES (Dip) NEGATIVE (NEGATIVE); URINE LEUKOCYTE ESTERASE (Dip) TRACE (NEGATIVE); URINE NITRITE (Dip) NEGATIVE (NEGATIVE); URINE TOTAL PROTEIN (Dip) NEGATIVE (NEGATIVE); URINE UROBILINOGEN (Dip) 0.2 E.U./dL (0.1-1.0)
[2016-09-28 07:39] LABS: BASOPHIL # 0.1 10^3/ul (0.0-0.1); BASOPHILS % 0.7 % (0.0-2.0); EOSINOPHILS # 0.2 10^3/ul (0.0-0.5); EOSINOPHILS % 1.5 % (0.0-7.0); HEMATOCRIT 33.8 % (37.0-47.0); HEMOGLOBIN 11.8 g/dl (12.0-16.0); LYMPHOCYTES # 2.6 10^3/ul (0.8-2.9); LYMPHOCYTES % 25.3 % (15.0-51.0); MEAN CORPUSCULAR HEMOGLOBIN 30.3 pg (29.0-33.0); MEAN CORPUSCULAR HGB CONC 34.9 g/dl (32.0-37.0); MEAN CORPUSCULAR VOLUME 86.9 fl (82.0-101.0); MEAN PLATELET VOLUME 9.2 fl (7.4-10.4); MONOCYTE # 0.8 10^3/ul (0.3-0.9); MONOCYTES % 7.5 % (0.0-11.0); NEUTROPHIL # 6.7 10^3/ul (1.6-7.5); NEUTROPHILS % 64.6 % (39.0-77.0); PLATELET COUNT 305 10^3/UL (140-415); RED BLOOD COUNT 3.89 10^6/ul (4.20-5.40); RED CELL DISTRIBUTION WIDTH 13.6 % (11.5-14.5); WHITE BLOOD COUNT 10.3 10^3/ul (4.8-10.8)
[2016-09-28 07:50] LABS: ALBUMIN 4.1 g/dl (3.3-4.9); POTASSIUM 4.1 mmol/L (3.5-5.1); URINE RBCS 0-2 /HPF (0)
[2016-09-28 07:52] LABS: CREATININE 1.12 mg/dl (0.44-1.00)
[2016-09-28 07:53] LABS: ALBUMIN/GLOBULIN RATIO 1.32; CALCIUM 9.2 mg/dl (8.4-10.2); TOTAL PROTEIN 7.2 g/dl (6.1-8.1)
[2016-09-28 08:03] LABS: TROPONIN-I 0.023 ng/ml (0.00-0.12)
[2016-09-28] MEDS ORDERED: FAMO40TA52 PO (08:13)
[2016-09-28] MEDS ORDERED: ALPR0.5T PO (08:13)
[2016-09-28] MEDS ORDERED: MAG355OR14 PO (08:13)
--- NOTE | 2016-09-28 08:36 | RADRPT ---
PROCEDURE: XR Chest. CLINICAL INDICATION: Abdominal Pain TECHNIQUE: Portable single view of the chest COMPARISON: 09/23 FINDINGS: Cardiomegaly and ectatic, tortuous, and calcified aorta again seen. Lung volumes are again reduced with mild pulmonary vascular congestion. No definite focal infiltrate or pleural effusion. Degener ative change of the spine is seen. IMPRESSION: No significant interval change. No definite acute disease. RPTAT: HLBE Elena Turner Physician Date Time Electronically viewed and signed by Elena Turner Physician on 09/28/2016 08:35 LE/
--- NOTE | 2016-09-28 08:44 | ERD ---
ER Documentation Chief Complaint Date/Time DATE: 09/28/16 TIME: 08:39 Chief Complaint 'no oxygen' 'feeling warm' 'burping too much' HPI 85-year-old woman complaining of shortness of breath and increased belching 2 days. She has upper abdominal cramping with increased belching and burning in her throat as she states this is causing her to feel short of breath. She also feels anxious. She denies chest pain, no blood per rectum or melena, no dizziness or loss of consciousness, no chest pain, no fevers or chills, no calf or leg swelling. ROS All systems reviewed and are negative except as per history of present illness. Medications Home Meds Active Scripts Alprazolam* (Xanax*) 0.5 Mg Tab, 0.5 MG PO TID for ANXIETY, #12 TAB Prov:ZBIGNIEW PRATT MD 09/28/16 Famotidine* (Famotidine*) 40 Mg Tablet, 40 MG PO HS, #30 TAB Prov:ZBIGNIEW PRATT MD 09/28/16 Mag Hydrox/Al Hydrox/Simeth (Maalox Advanced Suspension) 355 Ml Oral.susp, 2 TSP PO TID for PAIN, #24 OZ Prov:ZBIGNIEW PRATT MD 09/28/16 Isosorbide Dinitrate* (Isosorbide Dinitrate*) 20 Mg Tablet, 10 MG PO TID, #90 TAB Prov:ELMO LOPEZ MD 09/24/16 Reported Medications Allopurinol* (Allopurinol*) 100 Mg Tablet, 100 MG PO DAILY, TAB 09/23/16 Gabapentin* (Gabapentin*) 300 Mg Capsule, 300 MG PO QHS, #60 CAP 09/23/16 Atorvastatin Calcium* (Atorvastatin Calcium*) 20 Mg Tablet, 20 MG PO QHS, #30 TAB 09/23/16 Nebivolol* (Bystolic*) 5 Mg Tab, 5 MG PO DAILY, #30 TAB 09/23/16 Quetiapine Fumarate* (Seroquel* XR) 50 Mg Tab.sr.24h, 50 MG PO DAILY, #30 TAB 09/23/16 Icosapent Ethyl (VASCEPA) 1 Gm Capsule, 1 GM PO QID, CAP 09/23/16 Memantine* (Namenda* XR) 28 Mg Cap.spr.24, 28 MG PO DAILY, #30 TAB 09/23/16 Allergies Allergies: Coded Allergies: No Known Allergy (Unverified , 09/23/16) PMhx/Soc Obesity, gastritis, anxiety, hypertension Medical and Surgical Hx: Unable to obtain History of Surgery: Yes (knee surgery ) Anesthesia Reaction: No Hx Neurological Disorder: No Hx Respiratory Disorders: No Hx Cardiac Disorders: No Hx Psychiatric Problems: No Hx Miscellaneous Medical Probl: No (anxiety ) Hx Alcohol Use: No Hx Substance Use: No Hx Tobacco Use: No Smoking Status: Never smoker FmHx Family History: No diabetes Physical Exam Vitals Vital Signs Date Time Temp Pulse Resp B/P Pulse Ox O2 Delivery O2 Flow Rate FiO2 09/28/16 07:29 75 23 164/93 100 Room Air 09/28/16 06:03 98.4 82 17 179/89 98 Physical Exam GENERAL: Well-developed, well-nourished, anxious HEENT: Moist mucous membranes, pink conjunctiva, no cervical spine tenderness or step-off deformities, no goiter, no jaundice or icterus, extraocular movements intact without pain. No submandibular induration, and no pharyngeal erythema NEURO: Alert and oriented 3, cranial nerves II through XII intact bilaterally, pupils equal round reactive to light, no focal deficits or facial asymmetry, sensation intact distally Strength 5/5 in upper and lower extremities bilaterally CARDIAC: Regular rate and rhythm, no murmurs rubs or gallops LUNGS: Clear bilaterally no wheezing crackles or stridor ABDOMEN: Soft nontender, no guarding, no rigidity, no rebound, no psoas sign no obturator sign. Normoactive bowel sounds SKIN: Warm and dry to touch, no abrasions, contusions, or hematomas, no lacerations, no ecchymosis, no target lesions, and without ulcers EXTREMITIES: No clubbing cyanosis or edema, calves are bilaterally symmetrical, no Homans sign, no popliteal cord sign. Distal pulses equal and bilateral PSYCH: Anxious Result Diagram: 09/28/1672409/28/16724 Results 24 hrs Laboratory Tests Test 09/28/16 07:25 Alanine Aminotransferase (ALT/SGPT) 41IU/L Albumin 4.1g/dl Albumin/Globulin Ratio 1.32 Alkaline Phosphatase 89IU/L Anion Gap 17 Aspartate Amino Transf (AST/SGOT) 27IU/L Basophils # 0.110^3/ul Basophils % 0.7% Blood Urea Nitrogen 26mg/dl Calcium Level 9.2mg/dl Carbon Dioxide Level 22mmol/L Chloride Level 100mmol/L Creatinine 1.12mg/dl Direct Bilirubin 0.00mg/dl Eosinophils # 0.210^3/ul Eosinophils % 1.5% Globulin 3.10g/dl Glucose Level 101mg/dl Hematocrit 33.8% Hemoglobin 11.8g/dl Indirect Bilirubin 0.0mg/dl Lipase 178U/L Lymphocytes # 2.610^3/ul Lymphocytes % 25.3% Mean Corpuscular Hemoglobin 30.3pg Mean Corpuscular Hemoglobin Concent 34.9g/dl Mean Corpuscular Volume 86.9fl Mean Platelet Volume 9.2fl Monocytes # 0.810^3/ul Monocytes % 7.5% Neutrophils # 6.710^3/ul Neutrophils % 64.6% Nucleated Red Blood Cells # 0.010^3/ul Nucleated Red Blood Cells % 0.0/100WBC Platelet Count 75688^3/UL Potassium Level 4.1mmol/L Red Blood Count 3.8910^6/ul Red Cell Distribution Width 13.6% Sodium Level 135mmol/L Total Bilirubin 0.0mg/dl Total Protein 7.2g/dl Troponin I 0.023ng/ml Urine Bilirubin NEGATIVE Urine Clarity CLEAR Urine Color LT. YELLOW Urine Epithelial Cells RARE Urine Glucose NEGATIVE% Urine Hemoglobin TRACE Urine Ketones NEGATIVE Urine Leukocyte Esterase TRACE Urine Microscopic RBC 0-2/HPF Urine Microscopic WBC 0-2/HPF Urine Nitrite NEGATIVE Urine Specific L[place]y <=1.005 Urine Total Protein NEGATIVE Urine Urobilinogen 0.2 E.U./dL Urine pH 6.0 White Blood Count 10.310^3/ul Current Medications Medications (Trade) Dose Ordered Sig/Rylee Route PRN Reason Start Time Stop Time Status Last Admin Dose Admin Lorazepam 0.5 mg 0.5 mg ONCE ONCE IV 09/28/16 07:00 09/28/16 07:01 DC 09/28/16 07:14 Sodium Chloride (NS) 500 ml @ 500 mls/hr Q1H STAT IV 09/28/16 06:44 09/28/16 07:43 DC 09/28/16 07:24 Ondansetron HCl (Zofran Inj) 4 mg ONCE STAT IV 09/28/16 06:44 09/28/16 06:48 DC 09/28/16 07:14 Famotidine (Pepcid) 40 mg ONCE STAT PO 09/28/16 06:44 09/28/16 06:48 DC 09/28/16 07:14 Miscellaneous Medication (Gi Cocktail (2)) 40 ml ONCE STAT PO 09/28/16 06:44 09/28/16 06:48 DC 09/28/16 07:15 Belladonna/ Phenobarbital () 2 tab ONCE STAT PO 09/28/16 06:44 09/28/16 06:48 DC 09/28/16 07:15 Procedures/MDM IV line was established patient was placed on radiation monitor rhythm strip revealed a sinus rhythm at about 90 bpm with upright P and T waves. Patient was afebrile. I administered 500 cc normal saline intravenously, lorazepam 0.5 mg IV, GI cocktail 50 cc p.o., Zofran 4 mg IV, and famotidine 40 mg p.o. with good effect. EKG performed, read by me: 73 bpm, normal sinus rhythm, normal axis, no acute ST segment changes, narrow QRS complex, with good R-wave progression in precordial leads. Chest X-ray 1V Interpreted by me: Soft Tissue: No acute abnormalities Bones: No acute abnormalities Mediastinum/Cardiac Silhouette/Lungs: No acute abnormalities CBC was unremarkable, electrolytes revealed dehydration with a BUN/creatinine of 26/1.1, liver function tests were unremarkable, troponin was negative. Urine analysis was negative for infection. Differential diagnoses considered, included but not limited to acute coronary syndrome, pulmonary embolism, aortic dissection, abdominal aortic aneurysm, sepsis, stroke, meningitis, encephalitis, pneumonia, appendicitis, cholecystitis , bowel obstruction, pyelonephritis, nephrolithiasis, cystitis, as well as metabolic, hematologic, and electrolyte abnormalities. As well as abscess, cellulitis, fractures, and dislocations. Patient feels much better at this time, and vital signs are normal, symptoms have improved. I did give strict instructions to return to the ED if symptoms continue or worsen, patient will otherwise follow-up with primary care physician. Patient understood instructions and agreed to plan. Departure Diagnosis: Primary Impression: GERD (gastroesophageal reflux disease) Esophagitis presence: with esophagitis Qualified Code: K21.0 - Gastroesophageal reflux disease with esophagitis Additional Impressions: Anxiety Dehydration Condition: Fair Patient Instructions: Gerd (Adult) ZBIGNIEW PRATT MD Sep 28, 2016 08:44
[2016-09-28 09:12] VITALS: BP 192/97; PULSE 78; RESP 18
== END 2016-09-28 09:12 | disposition home or self-care (01) ==
LOC: E/R 05:50
DX: K21.0 Gastro-esophageal reflux disease with esophagitis (principal); R40.2142 Coma scale, eyes open, spontaneous, at arrival to emergency department; F41.9 Anxiety disorder, unspecified; E86.0 Dehydration; R40.2252 Coma scale, best verbal response, oriented, at arrival to emergency department; R40.2362 Coma scale, best motor response, obeys commands, at arrival to emergency department; I10 Essential (primary) hypertension; E66.9 Obesity, unspecified; Z68.38 Body mass index [BMI] 38.0-38.9, adult
CPT/HCPCS: 71010; 80053; 81001; 83690; 84484; 85025; J2060; J2405; J7040; 36415; 81003; 93005; 96361; 96374; 96375

== ENCOUNTER 2016-10-06 00:12 | Emergency (ER) | END 2016-10-06 06:14 | disposition home or self-care (01) | DX: R10.13 Epigastric pain (principal) | CPT/HCPCS: 71010; 74176; 80053; 81003; 83690; 84484; 85025; 93005; J2270; J2405; J7040 ==

== ENCOUNTER 2016-10-08 07:36 | Emergency (ER) | payer MEDICARE, OTHER ==
[~2016-10-08] VITALS: Ht 167.6 cm; Wt 80.0 kg
[~2016-10-08 07:36] MED LIST changes: +ALPR0.5T PO; +CIPR500T4 PO; +FAMO40TA52 PO; +MAG355OR14 PO; +METR500T PO; +SUCR1TAB56 PO
[2016-10-08 07:39] VITALS: Ht 167.6 cm; Wt 80.0 kg
[2016-10-08] MEDS ORDERED: LORAZEPAM 2 MG INJ IV ONE (08:00)
[2016-10-08 08:24] LABS: ADD SCAN DIFF NO
[2016-10-08 08:27] LABS: BASOPHIL # 0.1 10^3/ul (0.0-0.1); EOSINOPHILS # 0.2 10^3/ul (0.0-0.5); EOSINOPHILS % 2.2 % (0.0-7.0); HEMATOCRIT 34.6 % (37.0-47.0); HEMOGLOBIN 11.5 g/dl (12.0-16.0); LYMPHOCYTES # 2.1 10^3/ul (0.8-2.9); LYMPHOCYTES % 23.1 % (15.0-51.0); MEAN CORPUSCULAR HEMOGLOBIN 29.4 pg (29.0-33.0); MEAN CORPUSCULAR HGB CONC 33.2 g/dl (32.0-37.0); MEAN CORPUSCULAR VOLUME 88.5 fl (82.0-101.0); MEAN PLATELET VOLUME 8.9 fl (7.4-10.4); MONOCYTE # 0.7 10^3/ul (0.3-0.9); MONOCYTES % 8.1 % (0.0-11.0); NEUTROPHIL # 5.9 10^3/ul (1.6-7.5); NEUTROPHILS % 65.2 % (39.0-77.0); PLATELET COUNT 305 10^3/UL (140-415); RED BLOOD COUNT 3.91 10^6/ul (4.20-5.40); RED CELL DISTRIBUTION WIDTH 13.9 % (11.5-14.5)
[2016-10-08 08:39] LABS: POTASSIUM 4.4 mmol/L (3.5-5.1)
[2016-10-08 08:42] LABS: CREATININE 1.1 mg/dl (0.44-1.00)
[2016-10-08 08:43] LABS: CALCIUM 9.5 mg/dl (8.4-10.2)
--- NOTE | 2016-10-08 08:47 | RADRPT ---
PROCEDURE: XR Chest. CLINICAL INDICATION: Shortness of breath. TECHNIQUE: Single frontal chest x-ray. COMPARISON: 10/06/2016 FINDINGS: Minimal bilateral lower lobe dependent atelectatic changes are present. Otherwise, the lungs are cl ear. The small lung nodules described on previous CT are not evident on this exam. No focal opacific ation is seen. No pneumothorax or pleural effusion is seen. Aortic arch atherosclerotic calcificat ions are present. Otherwise, the cardiomediastinal silhouette is unremarkable. The osseous structu res are grossly unremarkable. IMPRESSION: 1. No evidence of acute cardiopulmonary disease. 2. Mild bibasilar atelectasis. 3. Aortic atherosclerosis. RPTAT: JJ .Santiago Beck MD, MD Date Time Electronically viewed and signed by .Santiago Beck MD, on 10/08/2016 08:47 .A/
[2016-10-08 08:54] LABS: TROPONIN-I 0.012 ng/ml (0.00-0.12)
--- NOTE | 2016-10-08 09:38 | ERD ---
ER Documentation Chief Complaint Date/Time DATE: 10/08/16 TIME: 09:30 Chief Complaint states unable to sleep x2 months and because it lack of sleep has headache HPI This is an 85-year-old female who states she has had insomnia for 2 months and that she was taking Ambien for years and suddenly stopped taking it 3 days ago and her insomnia is worse. She said her doctor took her off of Ambien and gave her some Ativan which is not helping this is 1 mg. She is very agitated and anxious about not being able to sleep. She has no real physical complaints other than having chronic back pain for the past several months. She has no chest pain no shortness of breath no focal neurological complaints no dizziness or headache. ROS All systems reviewed and are negative except as per history of present illness. Medications Home Meds Active Scripts Metronidazole* (Flagyl*) 500 Mg Tablet, 500 MG PO TID for 7 Days, TAB Prov:VERONIKA PASCUAL. 10/06/16 Ciprofloxacin Hcl* (Ciprofloxacin Hcl*) 500 Mg Tablet, 500 MG PO BID for 7 Days , TAB Prov:VERONIKA PASCUAL 10/06/16 Sucralfate* (Carafate*) 1 Gm Tab, 1 GM PO QID, #30 TAB Prov:VERONIKA PASCUAL 10/06/16 Alprazolam* (Xanax*) 0.5 Mg Tab, 0.5 MG PO TID for ANXIETY, #12 TAB Prov:ZBIGNIEW PRATT MD 09/28/16 Famotidine* (Famotidine*) 40 Mg Tablet, 40 MG PO HS, #30 TAB Prov:ZBIGNIEW PRATT MD 09/28/16 Mag Hydrox/Al Hydrox/Simeth (Maalox Advanced Suspension) 355 Ml Oral.susp, 2 TSP PO TID for PAIN, #24 OZ Prov:ZBIGNIEW PRATT MD 09/28/16 Isosorbide Dinitrate* (Isosorbide Dinitrate*) 20 Mg Tablet, 10 MG PO TID, #90 TAB Prov:ELMO LOPEZ MD 09/24/16 Reported Medications Allopurinol* (Allopurinol*) 100 Mg Tablet, 100 MG PO DAILY, TAB 09/23/16 Gabapentin* (Gabapentin*) 300 Mg Capsule, 300 MG PO QHS, #60 CAP 09/23/16 Atorvastatin Calcium* (Atorvastatin Calcium*) 20 Mg Tablet, 20 MG PO QHS, #30 TAB 09/23/16 Nebivolol* (Bystolic*) 5 Mg Tab, 5 MG PO DAILY, #30 TAB 09/23/16 Quetiapine Fumarate* (Seroquel* XR) 50 Mg Tab.sr.24h, 50 MG PO DAILY, #30 TAB 09/23/16 Icosapent Ethyl (VASCEPA) 1 Gm Capsule, 1 GM PO QID, CAP 09/23/16 Memantine* (Namenda* XR) 28 Mg Cap.spr.24, 28 MG PO DAILY, #30 TAB 09/23/16 Allergies Allergies: Coded Allergies: No Known Allergy (Unverified , 09/23/16) PMhx/Soc History of Surgery: Yes (knee surgery ) Anesthesia Reaction: No Hx Neurological Disorder: No Hx Respiratory Disorders: No Hx Cardiac Disorders: Yes (htn) Hx Psychiatric Problems: No Hx Miscellaneous Medical Probl: No (anxiety,) Hx Alcohol Use: No Hx Substance Use: No Hx Tobacco Use: No Smoking Status: Never smoker FmHx Family History: No coronary disease Physical Exam Vitals Vital Signs Date Time Temp Pulse Resp B/P Pulse Ox O2 Delivery O2 Flow Rate FiO2 10/08/16 07:39 98.1 70 78 157/87 99 Physical Exam Const: Well-developed, well-nourished Head: Atraumatic, normocephalic Eyes: Normal Conjunctiva, PERRLA, EOMI, normal sclera, no nystagmus ENT: Normal External Ears, Nose and Mouth, moist mucus membranes. Neck: Full range of motion. No meningismus, no lymphadenopathy. Resp: Clear to auscultation bilaterally, no wheezing, rhonchi, rales Cardio: Regular rate and rhythm, no murmurs, S1 S2 present Abd: Soft, non tender x 4, non distended. Normal bowel sounds, no guarding or rebound, no pulsitile abdominal masses or bruits Skin: No petechiae or rashes, no ecchymosis , no maculopapular rash Back: No midline or flank tenderness Ext: No cyanosis, or edema, FROM x 4, normal inspection, neurovascularly intact x 4 Neur: Awake and alert, STR 5/5 x 4, sensation intact x 4, no focal findings, cerebellum intact Psych: Anxious Result Diagram: 10/08/16 0820 10/08/16 0821 Results 24 hrs Laboratory Tests Test 10/08/16 08:20 10/08/16 08:21 Basophils # 0.110^3/ul Basophils % 1.0% Eosinophils # 0.210^3/ul Eosinophils % 2.2% Hematocrit 34.6% Hemoglobin 11.5g/dl Lymphocytes # 2.110^3/ul Lymphocytes % 23.1% Mean Corpuscular Hemoglobin 29.4pg Mean Corpuscular Hemoglobin Concent 33.2g/dl Mean Corpuscular Volume 88.5fl Mean Platelet Volume 8.9fl Monocytes # 0.710^3/ul Monocytes % 8.1% Neutrophils # 5.910^3/ul Neutrophils % 65.2% Nucleated Red Blood Cells # 0.010^3/ul Nucleated Red Blood Cells % 0.0/100WBC Platelet Count 69455^3/UL Red Blood Count 3.9110^6/ul Red Cell Distribution Width 13.9% White Blood Count 9.010^3/ul Anion Gap 16 Blood Urea Nitrogen 23mg/dl Calcium Level 9.5mg/dl Carbon Dioxide Level 23mmol/L Chloride Level 102mmol/L Creatinine 1.10mg/dl Glucose Level 96mg/dl Potassium Level 4.4mmol/L Sodium Level 137mmol/L Troponin I 0.012ng/ml Current Medications Medications (Trade) Dose Ordered Sig/Rylee Route PRN Reason Start Time Stop Time Status Last Admin Dose Admin Lorazepam (Ativan) 1 mg ONCE ONCE IV 10/08/16 08:00 10/08/16 08:01 DC 10/08/16 08:27 Procedures/MDM PROCEDURE: XR Chest. CLINICAL INDICATION: Shortness of breath. TECHNIQUE: Single frontal chest x-ray. COMPARISON: 10/06/2016 FINDINGS: Minimal bilateral lower lobe dependent atelectatic changes are present. Otherwise, the lungs are clear. The small lung nodules described on previous CT are not evident on this exam. No focal opacification is seen. No pneumothorax or pleural effusion is seen. Aortic arch atherosclerotic calcifications are present. Otherwise, the cardiomediastinal silhouette is unremarkable. The osseous structures are grossly unremarkable. IMPRESSION: 1. No evidence of acute cardiopulmonary disease. 2. Mild bibasilar atelectasis. 3. Aortic atherosclerosis. RPTAT: JJ .Santiago Beck MD, Date Time Electronically viewed and signed by .Santiago Beck MD, on 10/08/2016 08:47 .A/ CC: SONA RAGSDALE DO Patient is having rebound insomnia from stopping the Ambien so suddenly. Advised her to take half dose Ambien Departure Diagnosis: Primary Impression: Insomnia Insomnia type: other insomnia Qualified Code: G47.09 - Other insomnia Condition: Stable Patient Instructions: Insomnia SONA RAGSDALE DO Oct 08, 2016 09:38
[2016-10-08 09:50] VITALS: BP 133/80; PULSE 78; RESP 18
== END 2016-10-08 09:53 | disposition home or self-care (01) ==
LOC: E/R 07:36
DX: G47.09 Other insomnia (principal); I10 Essential (primary) hypertension
CPT/HCPCS: 36415; 71010; 80048; 84484; 85025; 93005; 96374; 99285; J2060